=== PATIENT | male | born 1990 | race Caucasian/White ===

== ENCOUNTER 2024-09-09 18:40 | Emergency (ER) | payer SELFPAY ==
[2024-09-09 18:46] VITALS: BP 174/109
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
== END 2024-09-09 19:08 | disposition home or self-care (01) ==
LOC: EMR 18:40
PROVIDERS: EMERGENCY PHYSICIAN Student in an Organized Health Care Education/Training Program
DX: S60.222A Contusion of left hand, initial encounter (principal); W22.09XA Striking against other stationary object, initial encounter; Y99.0 Civilian activity done for income or pay
CPT/HCPCS: 99283; 73130